=== PATIENT | male | born 1960 | race Caucasian/White ===

== ENCOUNTER 2023-11-07 14:43 | Inpatient (IN) | payer OTHER ==
[~2023-11-07] VITALS: Ht 170.2 cm; Wt 92.1 kg
[2023-11-07] MEDS ORDERED: FUROSEMIDE 40 MG/4 ML VIAL ONE (15:23)
[2023-11-07] MEDS ORDERED: NITROGLYCERIN 0.4 MG/TAB BOTTLE ONE (15:23)
[2023-11-07] MEDS ORDERED: ASPIRIN 325 MG TABLET ONE (15:23)
[2023-11-07] MEDS: FUROSEMIDE 40 MG/4 ML VIAL IV ONE (15:28)
[2023-11-07] MEDS: ASPIRIN 325 MG TABLET PO ONE (15:29)
[2023-11-07] MEDS: NITROGLYCERIN 0.4 MG/TAB BOTTLE SL ONE (15:32)
[2023-11-07 15:41] LABS: BASOPHILS # (AUTO) 0.1 K/uL (0.0-0.2); BASOPHILS % (AUTO) 0.5 % (0.0-2.0); EOSINOPHILS # (AUTO) 0.3 K/uL (0.0-0.7); EOSINOPHILS % (AUTO) 3.2 % (0.0-6.0); HEMATOCRIT 44 % (39-51); LYMPHOCYTES # (AUTO) 1.8 K/uL (0.8-4.8); LYMPHOCYTES % (AUTO) 18.1 % (20.0-44.0); MEAN CORPUSCULAR HEMOGLOBIN 27 PG (26.0-33.0); MEAN CORPUSCULAR HGB CONC 34 g/dl (31.0-36.0); MEAN CORPUSCULAR VOLUME 78 fL (80-96); MONOCYTES % (AUTO) 10.5 % (2.0-12.0); NEUTROPHILS # (AUTO) 6.7 K/uL (1.8-8.9); NEUTROPHILS % (AUTO) 67.7 % (43.0-81.0); PLATELET COUNT (AUTO) 226 K/uL (150-450); RED BLOOD CELL COUNT(AUTO) 5.57 MIL/uL (4.5-6.0); RED CELL DISTRIBUTION WIDTH 14.4 % (11.5-15.0); WHITE BLOOD COUNT (AUTO) 9.8 K/uL (4.3-11.0)
[2023-11-07 15:54] LABS: CALCIUM, SERUM 8.8 mg/dL (8.5-10.1); CARBON DIOXIDE 30 mmol/L (21-32); CHLORIDE 104 mmol/L (98-107); GLUCOSE 100 mg/dL (74-106); POTASSIUM 3.9 mmol/L (3.5-5.1); SODIUM SERUM 140 mmol/L (136-145); UREA NITROGEN, BLOOD 17 mg/dL (7-18)
[2023-11-07 16:06] LABS: ALANINE AMINOTRANSFERASE 36 U/L (12-78); ALBUMIN 3.6 g/dL (3.4-5.0); ALKALINE PHOSPHATASE 78 U/L (46-116); ASPARTATE AMINOTRANSFERASE 15 U/L (15-37); BILIRUBIN,DIRECT 0.1 mg/dL (0.0-0.2); BILIRUBIN,TOTAL 0.4 mg/dL (0.2-1.0); NT-PRO BNP 380 pg/mL (0-125); TOTAL PROTEIN, SERUM 7.4 g/dL (6.4-8.2)
[2023-11-07] MEDS ORDERED: ENOXAPARIN SODIUM 100 MG/ML DISP.SYRIN SQ ONE (17:05)
[2023-11-07] MEDS: ENOXAPARIN SODIUM 100 MG/ML DISP.SYRIN SQ ONE (17:10)
[2023-11-07] MEDS ORDERED: ONDANSETRON HCL/PF 4 MG/2 ML VIAL IVP PRN (20:00)
[2023-11-07] MEDS ORDERED: MAGNESIUM HYDROXIDE 30 ML UDC PO PRN (20:00)
[2023-11-07] MEDS ORDERED: MAG HYDROX/AL HYDROX/SIMETH 30 ML UDC PO PRN (20:00)
[2023-11-07] MEDS ORDERED: MORPHINE SULFATE INJ 2 MG/ML DISP.SYRIN IV PRN (20:00)
[2023-11-07] MEDS ORDERED: Z GUARD REMEDY 4 OZ OINT TP PRN (20:00)
[2023-11-07] MEDS ORDERED: HYDROCODONE/APAP 5/325MG TABLET PO PRN (20:00)
[2023-11-07] MEDS ORDERED: NITROGLYCERIN 0.4 MG/TAB BOTTLE SL PRN (20:00)
[2023-11-07 20:57] LABS: CHOLESTEROL 181 mg/dL (<200); HDL CHOLESTEROL 48 mg/dL (40-60); LDL 104 mg/dL (0-99); TRIGLYCERIDES 128 mg/dL (30-150)
[2023-11-07] MEDS: ACETAMINOPHEN 325 MG TABLET PO PRN (22:43)
[2023-11-08] VITALS: BP 145/85; TEMP 98.6; O2SAT 97
[2023-11-08 04:00] VITALS: BP 138/80; TEMP 98.8; O2SAT 98
[2023-11-08 06:18] LABS: CALCIUM, SERUM 8.4 mg/dL (8.5-10.1); PHOSPHORUS 4.2 mg/dL (2.5-4.9); POTASSIUM 3.4 mmol/L (3.5-5.1)
[2023-11-08 06:21] LABS: BASOPHILS % (AUTO) 0.7 % (0.0-2.0); EOSINOPHILS # (AUTO) 0.3 K/uL (0.0-0.7); EOSINOPHILS % (AUTO) 4.4 % (0.0-6.0); HEMATOCRIT 43 % (39-51); HEMOGLOBIN 14.7 g/dL (13.5-17.5); LYMPHOCYTES # (AUTO) 1.4 K/uL (0.8-4.8); LYMPHOCYTES % (AUTO) 19.6 % (20.0-44.0); MEAN CORPUSCULAR HEMOGLOBIN 27 PG (26.0-33.0); MEAN CORPUSCULAR HGB CONC 34 g/dl (31.0-36.0); MEAN CORPUSCULAR VOLUME 79 fL (80-96); MONOCYTES # (AUTO) 0.7 K/uL (0.1-1.30); MONOCYTES % (AUTO) 9.5 % (2.0-12.0); NEUTROPHILS # (AUTO) 4.6 K/uL (1.8-8.9); NEUTROPHILS % (AUTO) 65.8 % (43.0-81.0); PLATELET COUNT (AUTO) 184 K/uL (150-450); RED BLOOD CELL COUNT(AUTO) 5.47 MIL/uL (4.5-6.0); RED CELL DISTRIBUTION WIDTH 14.4 % (11.5-15.0); WHITE BLOOD COUNT (AUTO) 6.9 K/uL (4.3-11.0)
[2023-11-08 06:49] LABS: THYROID STIMULATING HORMONE 1.167 uIU/mL (0.358-3.74)
[2023-11-08 08:00] VITALS: BP 148/79; TEMP 98; O2SAT 98
[2023-11-08] MEDS: PANTOPRAZOLE 40 MG TABLET.DR PO SCH (08:09)
[2023-11-08] MEDS ORDERED: PANTOPRAZOLE 40 MG TABLET.DR PO SCH (09:30)
[2023-11-08] MEDS: POTASSIUM CHLORIDE 20 MEQ TAB.PRT.SR PO ONE (09:46)
[2023-11-08] MEDS: ASPIRIN 81 MG TAB.CHEW PO SCH (09:46)
[2023-11-08] MEDS: ATORVASTATIN 40 MG TABLET PO SCH (09:46)
[2023-11-08] MEDS: ENOXAPARIN SODIUM 100 MG/ML DISP.SYRIN SQ SCH (09:48)
[2023-11-08 12:00] VITALS: BP 130/81; TEMP 98.1; O2SAT 97
[2023-11-08] MEDS: METOPROLOL TARTRATE 50 MG TABLET PO SCH (12:18)
[2023-11-08] MEDS ORDERED: IV NS 0.9% 250 ML IV ONE (14:06)
[2023-11-08] MEDS ORDERED: IOHEXOL-350 100 ML VIAL IV ONE (14:06)
[2023-11-08] MEDS ORDERED: CT SWABBABLE VALVE TRANS SET 1 EA INFUS.SET MC ONE (14:06)
[2023-11-08] MEDS: METOPROLOL TARTRATE INJ 5 MG/5 ML AMPUL IVP PRN (14:25)
[2023-11-08] MEDS ORDERED: METOPROLOL TARTRATE INJ 5 MG/5 ML AMPUL ONE ×2 (14:28→14:34)
[2023-11-08] MEDS: NITROGLYCERIN 0.4 MG/TAB BOTTLE SL ONE (14:33)
[2023-11-08 16:00] VITALS: BP 112/66; TEMP 97.9; O2SAT 98
[2023-11-08 20:00] VITALS: BP 129/87; TEMP 97.6; O2SAT 99
[2023-11-09] VITALS: BP 125/71; TEMP 98.6; O2SAT 98
[2023-11-09 04:00] VITALS: BP 146/79; TEMP 97.9; O2SAT 97
[2023-11-09 06:56] LABS: BASOPHILS % (AUTO) 0.5 % (0.0-2.0); EOSINOPHILS # (AUTO) 0.3 K/uL (0.0-0.7); EOSINOPHILS % (AUTO) 3.9 % (0.0-6.0); HEMATOCRIT 43 % (39-51); HEMOGLOBIN 14.9 g/dL (13.5-17.5); LYMPHOCYTES # (AUTO) 1.3 K/uL (0.8-4.8); LYMPHOCYTES % (AUTO) 19.2 % (20.0-44.0); MEAN CORPUSCULAR HEMOGLOBIN 27 PG (26.0-33.0); MEAN CORPUSCULAR HGB CONC 35 g/dl (31.0-36.0); MEAN CORPUSCULAR VOLUME 78 fL (80-96); MONOCYTES # (AUTO) 0.8 K/uL (0.1-1.30); NEUTROPHILS # (AUTO) 4.5 K/uL (1.8-8.9); NEUTROPHILS % (AUTO) 64.4 % (43.0-81.0); PLATELET COUNT (AUTO) 184 K/uL (150-450); RED BLOOD CELL COUNT(AUTO) 5.51 MIL/uL (4.5-6.0); RED CELL DISTRIBUTION WIDTH 14.2 % (11.5-15.0)
[2023-11-09 07:16] LABS: ALBUMIN 3.2 g/dL (3.4-5.0); BILIRUBIN,TOTAL 0.5 mg/dL (0.2-1.0); CALCIUM, SERUM 9.2 mg/dL (8.5-10.1); MAGNESIUM 2.2 mg/dL (1.8-2.4); PHOSPHORUS 4.3 mg/dL (2.5-4.9); POTASSIUM 3.8 mmol/L (3.5-5.1); TOTAL PROTEIN, SERUM 6.9 g/dL (6.4-8.2)
[2023-11-09 08:00] VITALS: BP 150/96; TEMP 98.4; O2SAT 98
[2023-11-09] MEDS: VALSARTAN 80 MG TABLET PO SCH (09:20)
[2023-11-09 09:21] VITALS: BP 150/96
[2023-11-09] MEDS: METOPROLOL SUCCINATE 50 MG TAB.SR.24H PO SCH (09:21)
[2023-11-09] MEDS ORDERED: METO50TA7 PO (17:36)
[2023-11-09] MEDS ORDERED: VALS80TA31 PO (17:36)
[2023-11-09] MEDS ORDERED: ASPI-1169 PO (17:36)
[2023-11-09] MEDS ORDERED: ATOR40TA PO (17:36)
[2023-11-10] MEDS ORDERED: ENOXAPARIN SODIUM 40 MG/0.4 ML DISP.SYRIN SQ SCH (09:00)
== END 2023-11-09 14:15 | disposition home or self-care (01) | DRG 190 ==
LOC: ER 14:58 → TELE1 19:36 → MEDSG1 11-09 10:27
DX: I21.4 Non-ST elevation (NSTEMI) myocardial infarction (principal); E66.9 Obesity, unspecified; E78.5 Hyperlipidemia, unspecified; I10 Essential (primary) hypertension; I25.10 Atherosclerotic heart disease of native coronary artery without angina pectoris; F17.210 Nicotine dependence, cigarettes, uncomplicated; Z71.6 Tobacco abuse counseling; Z68.31 Body mass index [BMI] 31.0-31.9, adult; Z98.61 Coronary angioplasty status
CPT/HCPCS: 36415; 71045-TC; 75574; 80048-TC; 80053-TC; 80061-TC; 80076-TC; 83735-TC; 83880; 84100-TC; 84443-TC; 84484-TC; 85025-TC; 93307-TC; 93970-TC; G0378; J1650; J1940; J3490; J7050; Q9967

== ENCOUNTER 2024-09-03 14:28 | Inpatient (IN) | payer OTHER ==
[~2024-09-03] VITALS: Ht 170.2 cm; Wt 92.5 kg
[~2024-09-03 14:28] MED LIST: ASPI-1169 PO; ATOR40TA PO; METO50TA7 PO; VALS80TA31 PO
[2024-09-03] MEDS ORDERED: NITROGLYCERIN PACKET 1 GM PACKET ONE (15:04)
[2024-09-03] MEDS: NITROGLYCERIN PACKET 1 GM PACKET TD ONE (15:08)
[2024-09-03 15:32] LABS: BASOPHILS % (AUTO) 0.7 % (0.0-2.0); EOSINOPHILS # (AUTO) 0.2 K/uL (0.0-0.7); HEMOGLOBIN 14.9 g/dL (13.5-17.5); LYMPHOCYTES # (AUTO) 1.8 K/uL (0.8-4.8); MEAN CORPUSCULAR HEMOGLOBIN 28 PG (26.0-33.0); MONOCYTES # (AUTO) 0.6 K/uL (0.1-1.30); WHITE BLOOD COUNT (AUTO) 7.2 K/uL (4.3-11.0)
[2024-09-03] MEDS ORDERED: CLOP75TA15 PO (15:35)
[2024-09-03] MEDS ORDERED: NITR0.4T48 SL (15:35)
[2024-09-03 15:41] LABS: EOSINOPHILS % (AUTO) 3.4 % (0.0-6.0); HEMATOCRIT 44 % (39-51); LYMPHOCYTES % (AUTO) 24.6 % (20.0-44.0); MEAN CORPUSCULAR HGB CONC 34 g/dl (31.0-36.0); MEAN CORPUSCULAR VOLUME 82 fL (80-96); MONOCYTES % (AUTO) 8.3 % (2.0-12.0); NEUTROPHILS # (AUTO) 4.5 K/uL (1.8-8.9); PLATELET COUNT (AUTO) 232 K/uL (150-450); RED BLOOD CELL COUNT(AUTO) 5.39 MIL/uL (4.5-6.0); RED CELL DISTRIBUTION WIDTH 13.2 % (11.5-15.0)
[2024-09-03 15:49] LABS: CARBON DIOXIDE 29 mmol/L (21-32); CHLORIDE 109 mmol/L (98-107); GLUCOSE 129 mg/dL (74-106); POTASSIUM 4.1 mmol/L (3.5-5.1); SODIUM SERUM 143 mmol/L (136-145); UREA NITROGEN, BLOOD 16 mg/dL (7-18)
[2024-09-03 16:04] LABS: NT-PRO BNP 96 pg/mL (0-125)
[2024-09-03 16:06] LABS: INR 0.94 (0.91-1.10); PARTIAL THROMBOPLASTIN TIME 27.3 SEC (24.3-34.3)
[2024-09-03] MEDS ORDERED: METOPROLOL TARTRATE INJ 5 MG/5 ML AMPUL ONE (17:22)
[2024-09-03] MEDS: METOPROLOL TARTRATE INJ 5 MG/5 ML AMPUL IV ONE (17:29)
[2024-09-03] MEDS ORDERED: MAGNESIUM HYDROXIDE 30 ML UDC PO PRN (19:00)
[2024-09-03] MEDS ORDERED: HYDROCODONE/APAP 5/325MG TABLET PO PRN (19:00)
[2024-09-03] MEDS ORDERED: Z GUARD REMEDY 4 OZ OINT TP PRN (19:00)
[2024-09-03] MEDS ORDERED: MAG HYDROX/AL HYDROX/SIMETH 30 ML UDC PO PRN (19:00)
[2024-09-03] MEDS ORDERED: ACETAMINOPHEN 325 MG TABLET PO PRN (19:00)
[2024-09-03] MEDS ORDERED: ONDANSETRON HCL/PF 4 MG/2 ML VIAL IVP PRN (19:00)
[2024-09-03] MEDS ORDERED: ENOXAPARIN SODIUM 40 MG/0.4 ML DISP.SYRIN SQ ONE (19:52)
[2024-09-03] MEDS ORDERED: NITROGLYCERIN 0.4 MG/TAB BOTTLE ONE (19:53)
[2024-09-03] MEDS: ENOXAPARIN SODIUM 40 MG/0.4 ML DISP.SYRIN SQ SCH (19:55)
[2024-09-03] MEDS: NITROGLYCERIN 0.4 MG/TAB BOTTLE SL ONE (20:00)
[2024-09-04] VITALS: BP 111/66; TEMP 98.6; O2SAT 97
[2024-09-04 04:00] VITALS: BP 138/84; TEMP 98.6; O2SAT 96
[2024-09-04] MEDS: MORPHINE SULFATE INJ 2 MG/ML DISP.SYRIN IV PRN (04:12)
[2024-09-04 06:14] LABS: BASOPHILS % (AUTO) 0.3 % (0.0-2.0); EOSINOPHILS # (AUTO) 0.3 K/uL (0.0-0.7); EOSINOPHILS % (AUTO) 3.4 % (0.0-6.0); HEMATOCRIT 43 % (39-51); HEMOGLOBIN 14.8 g/dL (13.5-17.5); LYMPHOCYTES # (AUTO) 1.6 K/uL (0.8-4.8); LYMPHOCYTES % (AUTO) 21.5 % (20.0-44.0); MEAN CORPUSCULAR HEMOGLOBIN 28 PG (26.0-33.0); MEAN CORPUSCULAR HGB CONC 35 g/dl (31.0-36.0); MEAN CORPUSCULAR VOLUME 81 fL (80-96); MONOCYTES # (AUTO) 0.6 K/uL (0.1-1.30); MONOCYTES % (AUTO) 7.5 % (2.0-12.0); NEUTROPHILS # (AUTO) 5.2 K/uL (1.8-8.9); NEUTROPHILS % (AUTO) 67.3 % (43.0-81.0); PLATELET COUNT (AUTO) 209 K/uL (150-450); RED BLOOD CELL COUNT(AUTO) 5.32 MIL/uL (4.5-6.0); RED CELL DISTRIBUTION WIDTH 13.3 % (11.5-15.0); WHITE BLOOD COUNT (AUTO) 7.7 K/uL (4.3-11.0)
[2024-09-04 06:23] LABS: INR 0.97 (0.91-1.10); PARTIAL THROMBOPLASTIN TIME 27.1 SEC (24.3-34.3); PROTHROMBIN TIME 10.3 SECS (9.2-11.1)
[2024-09-04 07:00] VITALS: BP 131/86; TEMP 98.2; O2SAT 94
[2024-09-04 07:18] LABS: CALCIUM, SERUM 8.7 mg/dL (8.5-10.1); MAGNESIUM 2.3 mg/dL (1.8-2.4); PHOSPHORUS 3.9 mg/dL (2.5-4.9); POTASSIUM 4.3 mmol/L (3.5-5.1); THYROID STIMULATING HORMONE 1.92 uIU/mL (0.358-3.74)
[2024-09-04] MEDS: PANTOPRAZOLE 40 MG TABLET.DR PO SCH (07:30)
[2024-09-04] MEDS: ASPIRIN 81 MG TAB.CHEW PO SCH (08:54)
[2024-09-04] MEDS: CLOPIDOGREL BISULFATE 75 MG TABLET PO SCH (08:55)
[2024-09-04] MEDS: ATORVASTATIN 40 MG TABLET PO SCH (08:55)
[2024-09-04] MEDS: METOPROLOL TARTRATE 50 MG TABLET PO SCH (08:55)
[2024-09-04 12:00] VITALS: BP 130/88; TEMP 98.4; O2SAT 94; O2SAT 97
[2024-09-04 16:00] VITALS: BP 154/90; TEMP 98.4; O2SAT 97
[2024-09-04 20:00] VITALS: BP 185/83; TEMP 97.9; O2SAT 83; O2SAT 95
[2024-09-05] VITALS (10 sets, daily range): BP systolic 143–172; BP diastolic 87–105; TEMP 97.3–98.4; O2SAT 96–98
[2024-09-05 07:42] LABS: CALCIUM, SERUM 8.7 mg/dL (8.5-10.1); CREATININE 0.9 mg/dL (0.6-1.3); MAGNESIUM 2.3 mg/dL (1.8-2.4); POTASSIUM 4.3 mmol/L (3.5-5.1)
[2024-09-05 07:51] LABS: INR 0.94 (0.91-1.10); PARTIAL THROMBOPLASTIN TIME 26.8 SEC (24.3-34.3)
[2024-09-05 07:52] LABS: BASOPHILS % (AUTO) 0.3 % (0.0-2.0); EOSINOPHILS # (AUTO) 0.3 K/uL (0.0-0.7); EOSINOPHILS % (AUTO) 3.6 % (0.0-6.0); HEMATOCRIT 46 % (39-51); HEMOGLOBIN 15.8 g/dL (13.5-17.5); LYMPHOCYTES % (AUTO) 26.9 % (20.0-44.0); MEAN CORPUSCULAR HEMOGLOBIN 28 PG (26.0-33.0); MEAN CORPUSCULAR HGB CONC 35 g/dl (31.0-36.0); MEAN CORPUSCULAR VOLUME 81 fL (80-96); MONOCYTES # (AUTO) 0.6 K/uL (0.1-1.30); MONOCYTES % (AUTO) 7.9 % (2.0-12.0); NEUTROPHILS # (AUTO) 4.5 K/uL (1.8-8.9); NEUTROPHILS % (AUTO) 61.3 % (43.0-81.0); PLATELET COUNT (AUTO) 232 K/uL (150-450); RED BLOOD CELL COUNT(AUTO) 5.59 MIL/uL (4.5-6.0); RED CELL DISTRIBUTION WIDTH 13.1 % (11.5-15.0); WHITE BLOOD COUNT (AUTO) 7.3 K/uL (4.3-11.0)
[2024-09-05] MEDS ORDERED: LIDOCAINE HCL/MPF 1% 30 ML VIAL IJ ONE (08:33)
[2024-09-05] MEDS ORDERED: NITROGLYCERIN IN 5 % DEXTROSE 250 ML IV ONE (08:33)
[2024-09-05] MEDS ORDERED: IODIXANOL 150 ML IV ONE ×2 (08:33→10:14)
[2024-09-05] MEDS ORDERED: IV SET PRIMARY PUMP SET 1 EA INFUS.SET MC ONE (08:34)
[2024-09-05] MEDS ORDERED: IV NS 0.9% 1,000 ML ONE (08:34)
[2024-09-05] MEDS ORDERED: FENTANYL PF 100MCG/2ML AMPUL ONE (09:26)
[2024-09-05] MEDS ORDERED: MIDAZOLAM HCL 2 MG/2ML VIAL ONE (09:26)
[2024-09-05] MEDS ORDERED: HEPARIN SODIUM, PORCINE 5000 UNITS/1 ML VIAL ONE (09:45)
[2024-09-05] MEDS ORDERED: HEPARIN SODIUM, PORCINE 1,000 UNIT/ML VIAL ONE (09:45)
[2024-09-05] MEDS ORDERED: IODIXANOL 320MG/ML 50 ML IV ONE (10:02)
[2024-09-05] MEDS ORDERED: CLOPIDOGREL BISULFATE 300 MG TABLET ONE (10:14)
[2024-09-05] MEDS ORDERED: IODIXANOL 320MG/ML 100 ML IV ONE (10:23)
[2024-09-05] MEDS: ZOLPIDEM TARTRATE 5 MG TABLET PO PRN (21:31)
[2024-09-06 06:59] LABS: CALCIUM, SERUM 9.3 mg/dL (8.5-10.1); POTASSIUM 3.6 mmol/L (3.5-5.1)
[2024-09-06 09:26] VITALS: BP 169/94
[2024-09-06] MEDS: CLOPIDOGREL BISULFATE 75 MG TABLET PO SCH (09:29)
[2024-09-06] MEDS ORDERED: METO50TA16 PO (10:39)
[2024-09-06] MEDS ORDERED: ASPI-1169 PO (10:39)
[2024-09-06] MEDS ORDERED: PANT40TA2 PO (10:39)
[2024-09-06] MEDS ORDERED: CLOP75TA15 PO (10:39)
== END 2024-09-06 11:30 | disposition home or self-care (01) | DRG 175 ==
LOC: ER 14:30 → TELE 19:20 → ICU 09-05 10:59 → TELE 09-05 18:29
PROVIDERS: ADMIT Nurse Practitioner Acute Care; ATTEND Nurse Practitioner Acute Care
PROC: 027136Z Dilation of Coronary Artery, Two Arteries with Three Drug-eluting Intraluminal Devices, Percutaneous Approach (ICD-10-PCS; principal; 2024-09-05)
PROC: 4A023N7 Measurement of Cardiac Sampling and Pressure, Left Heart, Percutaneous Approach (ICD-10-PCS; 2024-09-05)
PROC: B211YZZ Fluoroscopy of Multiple Coronary Arteries using Other Contrast (ICD-10-PCS; 2024-09-05)
PROC: 4A033BC Measurement of Arterial Pressure, Coronary, Percutaneous Approach (ICD-10-PCS; 2024-09-05)
PROC: B34HZZZ Ultrasonography of Right Upper Extremity Arteries (ICD-10-PCS; 2024-09-05)
DX: I25.110 Atherosclerotic heart disease of native coronary artery with unstable angina pectoris (principal); E66.9 Obesity, unspecified; I10 Essential (primary) hypertension; E78.5 Hyperlipidemia, unspecified; F17.210 Nicotine dependence, cigarettes, uncomplicated; Z71.6 Tobacco abuse counseling; J32.0 Chronic maxillary sinusitis; I25.2 Old myocardial infarction; Z91.199 Patient's noncompliance with other medical treatment and regimen due to unspecified reason; Z68.32 Body mass index [BMI] 32.0-32.9, adult
CPT/HCPCS: 36415; 70450-TC; 71045-TC; 80048-TC; 80061-TC; 83735-TC; 83880; 84100-TC; 84443-TC; 84484-TC; 85025-TC; 85347; 85610-TC; 85730-TC; 86850-TC; 93307-TC; A4223; G0378; J1644; J1650; J2250; J2270; J3010; J3490; J7030; Q9967

== ENCOUNTER 2024-12-15 14:02 | Inpatient (IN) | payer OTHER ==
[~2024-12-15] VITALS: Ht 170.2 cm; Wt 83.9 kg
[~2024-12-15 14:02] MED LIST changes: -ATOR40TA PO; +CLOP75TA15 PO; +METO50TA16 PO; -METO50TA7 PO; +NITR0.4T48 SL; +PANT40TA2 PO; +PIPERACILLIN /TAZOBACTAM 3.375 G in IV D5W 50 ML IV SCH; -VALS80TA31 PO
[2024-12-15 15:00] LABS: BASOPHILS % (AUTO) 0.3 % (0.0-2.0); EOSINOPHILS # (AUTO) 0.1 K/uL (0.0-0.7); EOSINOPHILS % (AUTO) 1.6 % (0.0-6.0); HEMATOCRIT 41 % (39-51); HEMOGLOBIN 14.4 g/dL (13.5-17.5); LYMPHOCYTES # (AUTO) 1.5 K/uL (0.8-4.8); LYMPHOCYTES % (AUTO) 16.5 % (20.0-44.0); MEAN CORPUSCULAR HEMOGLOBIN 28 PG (26.0-33.0); MEAN CORPUSCULAR HGB CONC 35 g/dl (31.0-36.0); MEAN CORPUSCULAR VOLUME 80 fL (80-96); MONOCYTES # (AUTO) 0.8 K/uL (0.1-1.30); NEUTROPHILS # (AUTO) 6.6 K/uL (1.8-8.9); NEUTROPHILS % (AUTO) 72.6 % (43.0-81.0); PLATELET COUNT (AUTO) 230 K/uL (150-450); RED BLOOD CELL COUNT(AUTO) 5.15 MIL/uL (4.5-6.0); RED CELL DISTRIBUTION WIDTH 13.8 % (11.5-15.0)
[2024-12-15] MEDS: IV NS 0.9% 1,000 ML BAG IV ONE (15:01)
[2024-12-15] MEDS: PIPERACILLIN /TAZOBACTAM 3.375 G in IV D5W 50 ML IV ONE ×2 (15:02→23:41)
[2024-12-15 15:14] LABS: INR 0.97 (0.91-1.10); PROTHROMBIN TIME 10.3 SECS (9.2-11.1)
[2024-12-15] MEDS: VANCOMYCIN 1 GM in IV D5W 250 ML IV ONE (15:16)
[2024-12-15 15:17] LABS: CALCIUM, SERUM 8.9 mg/dL (8.5-10.1); CARBON DIOXIDE 28 mmol/L (21-32); CHLORIDE 104 mmol/L (98-107); GLUCOSE 152 mg/dL (74-106); POTASSIUM 3.6 mmol/L (3.5-5.1); SODIUM SERUM 139 mmol/L (136-145); UREA NITROGEN, BLOOD 17 mg/dL (7-18)
[2024-12-15 15:30] LABS: ALANINE AMINOTRANSFERASE 24 U/L (12-78); ALBUMIN 3.4 g/dL (3.4-5.0); ALKALINE PHOSPHATASE 64 U/L (46-116); ASPARTATE AMINOTRANSFERASE 16 U/L (15-37); BILIRUBIN,DIRECT 0.1 mg/dL (0.0-0.2); BILIRUBIN,TOTAL 0.6 mg/dL (0.2-1.0); NT-PRO BNP 188 pg/mL (0-125); TOTAL PROTEIN, SERUM 7.2 g/dL (6.4-8.2)
[2024-12-15 15:43] LABS: LACTIC ACID 2.5 mmol/L (0.4-2.0)
[2024-12-15] MEDS: ASPIRIN 325 MG TABLET PO SCH (17:05)
[2024-12-15 17:08] LABS: APPEARANCE,URINE CLEAR (CLEAR); BILIRUBIN,URINE NEGATIVE (NEGATIVE); BLOOD, URINE NEGATIVE Ery/uL (NEGATIVE); COLOR,URINE YELLOW (YELLOW); KETONES,URINE NEGATIVE (NEGATIVE); LEUKOCYTE ESTERASE ,URINE NEGATIVE (NEGATIVE); NITRITE, URINE NEGATIVE (NEGATIVE); PROTEIN,URINE NEGATIVE (NEGATIVE); UGLUCOSE NEGATIVE (NEGATIVE); UROBILINOGEN,URINE 0.2 EU/dL (0.2)
[2024-12-15 17:32] VITALS: BP 158/87; TEMP 98.2; O2SAT 100
[2024-12-15] MEDS ORDERED: HYDROCODONE/APAP 5/325MG TABLET PO PRN (20:30)
[2024-12-15 20:33] VITALS: BP 134/74; TEMP 98.2; O2SAT 97
[2024-12-15 20:48] VITALS: BP 134/74; TEMP 98.2; O2SAT 97
[2024-12-15] MEDS: ACETAMINOPHEN ES 500 MG TABLET PO ONE (20:55)
[2024-12-15] MEDS: PIPERACI/TAZO 3.375GM/D5W 50ML PB IV ONE (23:25)
[2024-12-15] MEDS ORDERED: ONDANSETRON HCL/PF 4 MG/2 ML VIAL IVP PRN (23:30)
[2024-12-15] MEDS ORDERED: MAGNESIUM HYDROXIDE 30 ML UDC PO PRN (23:30)
[2024-12-15] MEDS: IV NS 0.9% 1,000 ML IV SCH (23:30)
[2024-12-15] MEDS ORDERED: MAG HYDROX/AL HYDROX/SIMETH 30 ML UDC PO PRN (23:30)
[2024-12-15] MEDS ORDERED: Z GUARD REMEDY 4 OZ OINT TP PRN (23:30)
[2024-12-15] MEDS ORDERED: ACETAMINOPHEN 325 MG TABLET PO PRN (23:30)
[2024-12-16] MEDS: VANCOMYCIN 1 GM /D5W 250 ML PB IV ONE (02:38)
[2024-12-16] MEDS: VANCOMYCIN 1 GM in IV D5W 250 ML IV ONE (02:45)
[2024-12-16] MEDS: PIPERACILLIN /TAZOBACTAM 3.375 G in IV D5W 50 ML IV SCH (07:19)
[2024-12-16 07:25] LABS: BASOPHILS % (AUTO) 0.6 % (0.0-2.0); EOSINOPHILS # (AUTO) 0.2 K/uL (0.0-0.7); EOSINOPHILS % (AUTO) 2.7 % (0.0-6.0); HEMATOCRIT 40 % (39-51); HEMOGLOBIN 13.9 g/dL (13.5-17.5); LYMPHOCYTES # (AUTO) 1.4 K/uL (0.8-4.8); LYMPHOCYTES % (AUTO) 17.8 % (20.0-44.0); MEAN CORPUSCULAR HEMOGLOBIN 28 PG (26.0-33.0); MEAN CORPUSCULAR HGB CONC 34 g/dl (31.0-36.0); MEAN CORPUSCULAR VOLUME 81 fL (80-96); MONOCYTES # (AUTO) 0.7 K/uL (0.1-1.30); MONOCYTES % (AUTO) 8.6 % (2.0-12.0); NEUTROPHILS # (AUTO) 5.4 K/uL (1.8-8.9); NEUTROPHILS % (AUTO) 70.3 % (43.0-81.0); PLATELET COUNT (AUTO) 207 K/uL (150-450); RED BLOOD CELL COUNT(AUTO) 5.01 MIL/uL (4.5-6.0); RED CELL DISTRIBUTION WIDTH 13.9 % (11.5-15.0); WHITE BLOOD COUNT (AUTO) 7.7 K/uL (4.3-11.0)
[2024-12-16 07:46] LABS: CALCIUM, SERUM 8.3 mg/dL (8.5-10.1); MAGNESIUM 2.1 mg/dL (1.8-2.4); PHOSPHORUS 2.8 mg/dL (2.5-4.9); POTASSIUM 4.2 mmol/L (3.5-5.1)
[2024-12-16] MEDS: ASPIRIN 81 MG TAB.CHEW PO SCH (08:12)
[2024-12-16] MEDS: PANTOPRAZOLE 40 MG VIAL IV SCH (08:12)
[2024-12-16] MEDS: CLOPIDOGREL BISULFATE 75 MG TABLET PO SCH (08:12)
[2024-12-16] MEDS: METOPROLOL TARTRATE 50 MG TABLET PO SCH (08:12)
[2024-12-16 08:32] VITALS: BP 129/86; TEMP 98.2; O2SAT 97
[2024-12-16] MEDS ORDERED: ACETAMINOPHEN 650 MG/20.3 ML UDC NG PRN (09:00)
[2024-12-16] MEDS ORDERED: ZOLPIDEM TARTRATE 5 MG TABLET PO PRN (13:00)
[2024-12-16] MEDS: VANCOMYCIN HCL 1.25 GM in IV D5W 250 ML IV SCH (13:02)
[2024-12-16 16:09] VITALS: BP 112/79; TEMP 98.4; O2SAT 99
[2024-12-16] MEDS: IV NS 0.9% 1,000 ML IV PRN (18:13)
[2024-12-16 20:00] VITALS: BP 122/74; TEMP 99.7; O2SAT 97
[2024-12-17 07:50] LABS: BASOPHILS # (AUTO) 0.1 K/uL (0.0-0.2); BASOPHILS % (AUTO) 0.7 % (0.0-2.0); EOSINOPHILS # (AUTO) 0.2 K/uL (0.0-0.7); HEMATOCRIT 40 % (39-51); HEMOGLOBIN 13.8 g/dL (13.5-17.5); LYMPHOCYTES # (AUTO) 1.3 K/uL (0.8-4.8); LYMPHOCYTES % (AUTO) 17.2 % (20.0-44.0); MEAN CORPUSCULAR HEMOGLOBIN 27 PG (26.0-33.0); MEAN CORPUSCULAR HGB CONC 34 g/dl (31.0-36.0); MEAN CORPUSCULAR VOLUME 80 fL (80-96); MONOCYTES # (AUTO) 0.6 K/uL (0.1-1.30); MONOCYTES % (AUTO) 8.5 % (2.0-12.0); NEUTROPHILS # (AUTO) 5.3 K/uL (1.8-8.9); NEUTROPHILS % (AUTO) 71.6 % (43.0-81.0); PLATELET COUNT (AUTO) 232 K/uL (150-450); RED BLOOD CELL COUNT(AUTO) 5.05 MIL/uL (4.5-6.0); RED CELL DISTRIBUTION WIDTH 13.3 % (11.5-15.0); WHITE BLOOD COUNT (AUTO) 7.5 K/uL (4.3-11.0)
[2024-12-17 08:00] VITALS: BP 157/80; TEMP 97.9; TEMP 99.1; O2SAT 100; O2SAT 98
[2024-12-17 08:33] LABS: ALBUMIN 3.1 g/dL (3.4-5.0); BILIRUBIN,TOTAL 0.4 mg/dL (0.2-1.0); CALCIUM, SERUM 8.9 mg/dL (8.5-10.1); MAGNESIUM 2.2 mg/dL (1.8-2.4); PHOSPHORUS 3.2 mg/dL (2.5-4.9); POTASSIUM 3.9 mmol/L (3.5-5.1)
[2024-12-17] MEDS ORDERED: DOXY100C2 PO (08:57)
[2024-12-17 09:49] VITALS: BP 157/80
[2024-12-17] MEDS: PANTOPRAZOLE 40 MG TABLET.DR PO SCH (09:49)
[2024-12-17] MEDS: MUPIROCIN OINT 2% 22 GM TUBE TP SCH (12:16)
== END 2024-12-17 13:00 | disposition home or self-care (01) | DRG 383 ==
LOC: ER 14:02 → MED 15:28
PROVIDERS: ATTEND Student in an Organized Health Care Education/Training Program
DX: L03.114 Cellulitis of left upper limb (principal); I21.A1 Myocardial infarction type 2; I10 Essential (primary) hypertension; E11.9 Type 2 diabetes mellitus without complications; E78.5 Hyperlipidemia, unspecified; I25.10 Atherosclerotic heart disease of native coronary artery without angina pectoris; Z79.82 Long term (current) use of aspirin; F17.210 Nicotine dependence, cigarettes, uncomplicated; Z71.6 Tobacco abuse counseling; Z95.5 Presence of coronary angioplasty implant and graft
CPT/HCPCS: 36415; 71045-TC; 73080-TC; 80048-TC; 80053-TC; 80076-TC; 80202-TC; 83605-TC; 83735-TC; 83880; 84100-TC; 84484-TC; 85025-TC; 85652-TC; 85730-TC; 86140-TC; 87040-TC; 87086-TC; 93307-TC; 93971-TC; A4223; G0378; J2470; J2543; J3370; J7030; J7040; J7060